=== PATIENT | male | born 1950 | race Caucasian/White ===

== ENCOUNTER 2020-05-02 06:55 | Outpatient (NON) | payer MEDICARE, SELFPAY ==
[2020-05-02 18:25] LABS: SARS-CoV-2 RNA PCR Negative
== END 2020-05-02 06:56 ==
PROVIDERS: PCP Internal Medicine Pulmonary Disease
DX: Z20.828 Contact with and (suspected) exposure to other viral communicable diseases (principal); R05 Cough; Z94.2 Lung transplant status
CPT/HCPCS: 87635; C9803; U0003